=== PATIENT | female | born 1955 | race Caucasian/White ===

== ENCOUNTER 2017-05-14 11:28 | Emergency (ER) | payer MEDICARE, OTHER ==
[~2017-05-14] VITALS: Ht 162.6 cm; Wt 118.0 kg
[~2017-05-14 11:28] MED LIST: GABA300 PO; GLUCTAB OR; HYDR10TA16 PO; LISI-360 PO; MDI; METFPOW8 XX
[2017-05-14 11:31] VITALS: BP 196/88; PULSE 62; RESP 18; TEMP 98.6; O2SAT 96
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
[2017-05-14] MEDS ORDERED: SODIUM CHLORIDE 0.9% FLUSH 10 ML FLUSH IVF PRN (13:45)
[2017-05-14 13:58] LABS: AUTOMATED NEUTROPHIL # 7.7 TH/MM3 (1.8-7.7); BASOPHIL # 0.1 TH/MM3 (0-0.2); BASOPHIL % 0.6 % (0.0-2.0); EOSINOPHIL # 0.2 TH/MM3 (0-0.4); EOSINOPHIL % 1.6 % (0.0-4.0); HEMATOCRIT 39.5 % (35.0-46.0); HEMO FLAGS DIFF FINAL; LYMPH % 15.3 % (9.0-44.0); LYMPHOCYTE # 1.5 TH/MM3 (1.0-4.8); MEAN CELL VOLUME 89.9 FL (80.0-100.0); MEAN CORPUSCULAR HEMOGLOBIN 30.9 PG (27.0-34.0); MEAN CORPUSCULAR HGB CONC 34.3 % (32.0-36.0); MONO % 6.6 % (0.0-8.0); NEUT % 75.9 % (16.0-70.0); PLATELET COUNT 328 TH/MM3 (150-450); RED BLOOD COUNT 4.39 MIL/MM3 (4.00-5.30); RED CELL DISTRIBUTION WIDTH 13.7 % (11.6-17.2); WHITE BLOOD COUNT 10.1 TH/MM3 (4.0-11.0)
[2017-05-14 14:00] VITALS: BP 166/86; PULSE 61; RESP 20; O2SAT 97
[2017-05-14] MEDS ORDERED: IBUPROFEN 600 MG TAB PO ONE (14:00)
[2017-05-14] MEDS ORDERED: methylPREDNISolone SOD SUCC 125 MG/2 ML VIAL IVP ONE (14:00)
[2017-05-14 14:07] LABS: APTT (PATIENT) 27.3 SEC (24.3-30.1); PROTHROMBIN TIME - PATIENT 10.6 SEC (9.8-11.6)
[2017-05-14 14:23] LABS: ALT (GPT) 23 U/L (10-53)
[2017-05-14] MEDS ORDERED: TOPR50TA PO (14:27)
[2017-05-14] MEDS ORDERED: VENTAER INH (14:27)
[2017-05-14] MEDS ORDERED: ARIP1TAB5 PO (14:27)
[2017-05-14] MEDS ORDERED: ROSU20 PO (14:27)
[2017-05-14] MEDS ORDERED: COLA100C PO (14:27)
[2017-05-14] MEDS ORDERED: ROPI.5 PO (14:27)
[2017-05-14] MEDS ORDERED: ZOFR4TAB3 SL (14:27)
[2017-05-14] MEDS ORDERED: POTA10CA PO (14:27)
[2017-05-14] MEDS ORDERED: GABA600T PO (14:27)
[2017-05-14] MEDS ORDERED: MOBI15TA PO (14:27)
[2017-05-14] MEDS ORDERED: TRAZ50TA12 PO (14:27)
[2017-05-14] MEDS ORDERED: ASPI1TAB91 PO (14:27)
[2017-05-14] MEDS ORDERED: CYMB30CA PO (14:27)
[2017-05-14] MEDS ORDERED: FURO1TAB62 PO (14:27)
[2017-05-14] MEDS ORDERED: LISI-515 PO (14:27)
[2017-05-14] MEDS ORDERED: DEXI60CA2 PO (14:27)
[2017-05-14] MEDS ORDERED: DICL1GEL7 TOPICAL (14:27)
[2017-05-14] MEDS ORDERED: HYDR-3366 PO (14:27)
[2017-05-14] MEDS ORDERED: NITR0.4S SL (14:27)
[2017-05-14] MEDS ORDERED: SYMB160A INH (14:27)
[2017-05-14] MEDS ORDERED: BUSP10TA PO (14:27)
[2017-05-14 14:29] LABS: ALKALINE PHOSPHATASE 90 U/L (45-117); ANION GAP 9 MEQ/L (5-15); AST (GOT) 28 U/L (15-37); BICARBONATE 22.9 MEQ/L (21.0-32.0); BLOOD UREA NITROGEN 9 MG/DL (7-18); CHLORIDE 105 MEQ/L (98-107); GLOMERULAR FILTRATION RATE 115 ML/MIN (>89); MAGNESIUM 2.2 MG/DL (1.5-2.5); SODIUM (NA) 137 MEQ/L (136-145); TOTAL BILIRUBIN ADULT 0.6 MG/DL (0.2-1.0)
[2017-05-14 14:32] LABS: CREATINE KINASE 83 U/L (26-192); POTASSIUM 4.6 MEQ/L (3.5-5.1)
[2017-05-14] MEDS: RESP: ALBUTEROL 2.5 MG/IPRATROPIUM 0.5 MG NEB (SCH) INH ×2 (14:35→14:36)
--- NOTE | 2017-05-14 14:38 | RADRPT ---
EXAM DATE/TIME: 05/14/2017 14:04 [facility] COMPARISON: No previous studies available for comparison. INDICATIONS : Short of breath. MEDICAL HISTORY : None. SURGICAL HISTORY : None. ENCOUNTER: Initial ACUITY: 1 day PAIN SCORE: 8/10 LOCATION: Bilateral chest FINDINGS: A single view of the chest demonstrates the lungs to be symmetrically aerated without evidence of mas s, infiltrate or effusion. The cardiomediastinal contours are unremarkable. Osseous structures are intact. There is a calcified granuloma in the right lower lobe. There are multiple overlying electroc ardiogram leads. The patient is status post right shoulder arthroplasty. CONCLUSION: No acute disease. Sheldon Hawkins MD on May 14, 2017 at 14:36 Board Certified Radiologist. This report was verified electronically.
[2017-05-14] MEDS ORDERED: PRED20 PO (15:35)
--- NOTE | 2017-05-14 15:49 | PD ---
Data Data Last Documented VS Vital Signs Date Time Temp Pulse Resp B/P (MAP) Pulse Ox O2 Delivery O2 Flow Rate FiO2 05/14/17 14:00 61 20 166/86 (112) 97 Room Air 05/14/17 11:31 98.6 Orders Orders Electrocardiogram (05/14/17 ) Complete Blood Count With Diff (05/14/17 13:38) Comprehensive Metabolic Panel (05/14/17 13:38) B-Type Natriuretic Peptide (05/14/17 13:38) Act Partial Throm Time (Ptt) (05/14/17 13:38) Prothrombin Time / Inr (Pt) (05/14/17 13:38) Magnesium (Mg) (05/14/17 13:38) Ckmb (Isoenzyme) Profile (05/14/17 13:38) Troponin I (05/14/17 13:38) Iv Access Insert/Monitor (05/14/17 13:38) Ecg Monitoring (05/14/17 13:38) Oximetry (05/14/17 13:38) Chest, Single Ap (05/14/17 13:38) Sodium Chloride 0.9% Flush (Ns Flush) (05/14/17 13:45) Methylprednisolone So Succ Inj (Solumedr (05/14/17 14:00) Albuterol-Ipratropium Neb (Duoneb Neb) (05/14/17 14:00) Ibuprofen (Motrin) (05/14/17 14:00) Resp Mdi/Instruction (05/14/17 ) Labs Laboratory Tests Test 05/14/17 13:50 White Blood Count 10.1 TH/MM3 Red Blood Count 4.39 MIL/MM3 Hemoglobin 13.6 GM/DL Hematocrit 39.5 % Mean Corpuscular Volume 89.9 FL Mean Corpuscular Hemoglobin 30.9 PG Mean Corpuscular Hemoglobin Concent 34.3 % Red Cell Distribution Width 13.7 % Platelet Count 328 TH/MM3 Mean Platelet Volume 8.0 FL Neutrophils (%) (Auto) 75.9 % Lymphocytes (%) (Auto) 15.3 % Monocytes (%) (Auto) 6.6 % Eosinophils (%) (Auto) 1.6 % Basophils (%) (Auto) 0.6 % Neutrophils # (Auto) 7.7 TH/MM3 Lymphocytes # (Auto) 1.5 TH/MM3 Monocytes # (Auto) 0.7 TH/MM3 Eosinophils # (Auto) 0.2 TH/MM3 Basophils # (Auto) 0.1 TH/MM3 CBC Comment DIFF FINAL Differential Comment Prothrombin Time 10.6 SEC Prothromb Time International Ratio 1.0 RATIO Activated Partial Thromboplast Time 27.3 SEC Blood Urea Nitrogen 9 MG/DL Creatinine 0.54 MG/DL Random Glucose 101 MG/DL Total Protein 7.7 GM/DL Albumin 3.7 GM/DL Calcium Level 9.3 MG/DL Magnesium Level 2.2 MG/DL Alkaline Phosphatase 90 U/L Aspartate Amino Transf (AST/SGOT) 28 U/L Alanine Aminotransferase (ALT/SGPT) 23 U/L Total Bilirubin 0.6 MG/DL Sodium Level 137 MEQ/L Potassium Level 4.6 MEQ/L Chloride Level 105 MEQ/L Carbon Dioxide Level 22.9 MEQ/L Anion Gap 9 MEQ/L Estimat Glomerular Filtration Rate 115 ML/MIN Total Creatine Kinase 83 U/L Troponin I LESS THAN 0.02 NG/ML B-Type Natriuretic Peptide 115 PG/ML MDM Supervised Visit with MARITA: Yes Narrative Course The history, exam, and medical decision-making in the associated midlevel provider note were completed with my assistance. I reviewed and agree with the findings presented. I attest that I had a [id number] encounter with the patient on the same day, and personally performed and documented my assessment and findings in the medical record. *My assessment and Findings: This is a 62-year-old female who has a history of COPD who presents to the emergency department with shortness of breath and chest discomfort that's been present for several days, constant, associated with some cough with yellow sputum production. Patient has been out of power says she has not accessed her nebulizer machine order CPAP. She says that earlier this calendar year she was seen in [place] and had a full cardiac workup including a stress test which was reassuring. Today her EKG is nonischemic. Troponin is normal. She is quite hypertensive but that improved here in the emergency department. She was given bronchodilator treatments and steroids and her symptoms improved significantly. We had a conversation regarding admission versus outpatient management. Her chest pain has been constant for more than 8 hours and she's had risk stratification earlier this year so I think one troponin is adequate to reasonably skewed acute coronary syndrome. She was given a spacer for her MDI which should hold her over until her power comes back on and her nebulizers work again. She'll also be discharged on prednisone. I suspect her symptoms are more related to her COPD. Patient will be discharged home but she was asked to return to the emergency department if she had all feels worse. Diagnosis Primary Impression: COPD exacerbation Referrals: Primary Care Physician Patient Instructions: General Instructions, COPD (Chronic Obstructive Pulmonary Disease) (ED), Nutrition Guidelines for People with COPD (ED) Additional Instruction: Rest, hydrate. Continue using your inhaler with the spacer as needed. Take prednisone as prescribed. Take metformin as previously prescribed while taking prednisone. Follow up with your PCP or the [facility]. Return to the ED for worsening symptoms or any urgent or emergent medical condition. Scripts Prednisone (Prednisone) 20 Mg Tab 40 MG PO DAILY, #10 TAB 0 Refills Take 40 mg (2 tablets) daily for 5 days Prov: Nicole Hearn MD 05/14/17 Disposition: 01 DISCHARGE HOME Condition: Stable Nicole Hearn MD May 14, 2017 15:49
--- NOTE | 2017-05-15 21:56 | EKG ---
Date Performed: 05/14/2017 Time Performed: 11:57:06 PTAGE: 62 years EKG: SINUS BRADYCARDIA MINIMAL ST DEPRESSION BORDERLINE ECG PREVIOUS TRACING : 11/12/1993 20.19 Compared to prior tracing no significant change DOCTOR: Carey Joy Interpretating Date/Time 05/15/2017 21:55:34
== END 2017-05-14 16:09 | disposition home or self-care (01) ==
LOC: NEPC 11:28
DX: J44.1 Chronic obstructive pulmonary disease with (acute) exacerbation (principal); I10 Essential (primary) hypertension; E11.9 Type 2 diabetes mellitus without complications; I50.9 Heart failure, unspecified; E78.00 Pure hypercholesterolemia, unspecified; G47.33 Obstructive sleep apnea (adult) (pediatric)
CPT/HCPCS: 71010; 80053; 82550; 83735; 83880; 84484; 85025; 85610; 85730; 93005; 94640; 94664; 96374; 99285; J2930

== ENCOUNTER 2017-08-04 14:05 | Emergency (ER) | payer MEDICARE, OTHER ==
[~2017-08-04] VITALS: Ht 162.6 cm; Wt 109.0 kg
[~2017-08-04 14:05] MED LIST changes: +ABIL10TA8 PO; +ASPI81TA16 PO; +BUSP10TA PO; +COLA100C5 PO; +CYMB30CA PO; +DEXI60CA3 PO; +DICL1GEL7 TOPICAL; +FURO1TAB62 PO; -GABA300 PO; +GABA600T PO; -GLUCTAB OR; +HYDR-3366 PO; -HYDR10TA16 PO; -LISI-360 PO; +LISI-515 PO; -MDI; -METFPOW8 XX; +MOBI15TA PO; +NITR0.4S SL; +POTA10CA PO; +PRED20 PO; +ROPI.5 PO; +ROSU20 PO; +SYMB160A INH; +TOPR50TA PO; +TRAZ50TA12 PO; +VENTAER INH; +ZOFR4TAB3 SL
[2017-08-04 14:07] VITALS: BP 155/76; PULSE 75; RESP 22; TEMP 98; O2SAT 98
[2017-08-04] MEDS ORDERED: METOCLOPRAMIDE HCL 10 MG TAB PO ONE (16:15)
--- NOTE | 2017-08-04 16:52 | RADRPT ---
EXAM DATE/TIME: 08/04/2017 16:25 [facility] COMPARISON: CHEST SINGLE AP, May 14, 2017, 14:04. INDICATIONS : Right rib pain from fall. MEDICAL HISTORY : None. SURGICAL HISTORY : None. ENCOUNTER: Initial ACUITY: 1 day PAIN SCORE: 5/10 LOCATION: Right ribs FINDINGS: Multiple views of the right ribs were performed. There is no evidence of displaced fracture. No leelee tructive lesions or areas of periosteal thickening are seen. Expiratory view of the chest is negativ e for pneumothorax. The mediastinal structures are midline. There is a small stable granuloma in the right lung base. There is a right shoulder arthroplasty in place. CONCLUSION: 1. No displaced rib fractures or pneumothorax. Jorge Finley MD on August 04, 2017 at 16:47 Board Certified Radiologist. This report was verified electronically.
--- NOTE | 2017-08-04 16:52 | RADRPT ---
EXAM DATE/TIME: 08/04/2017 16:32 [facility] COMPARISON: No previous studies available for comparison. INDICATIONS : Foot pain, from fall. MEDICAL HISTORY : None. SURGICAL HISTORY : None. ENCOUNTER: Initial ACUITY: 1 day PAIN SCORE: 0/10 LOCATION: Right foot FINDINGS: Bones are osteopenic. I don't see an acute fracture of the right foot. There is mild soft tissue swel ling dorsally of the forefoot. Incidentally seen type I accessory navicular. Patient is status post screw and plate fixation of distal tibia and fibula fractures that appear heal ed. CONCLUSION: No fracture or subluxation of the right foot. Caesar Pearson MD on August 04, 2017 at 16:48 Board Certified Radiologist. This report was verified electronically.
--- NOTE | 2017-08-04 16:55 | RADRPT ---
EXAM DATE/TIME: 08/04/2017 16:28 [facility] COMPARISON: No previous studies available for comparison. INDICATIONS : Fall, shoulder pain. lateral portion of shoulder. MEDICAL HISTORY : None. SURGICAL HISTORY : None. ENCOUNTER: Initial ACUITY: 1 day PAIN SCORE: 0/10 LOCATION: Left shoulder FINDINGS: There is a minimally displaced fracture of the greater tuberosity. Remaining osseous structures are i ntact. Glenohumeral joint are maintained. The acromioclavicular joint is intact. Visualized soft tiss ues are unremarkable. CONCLUSION: 1. Minimally displaced greater tuberosity fracture, as above. Jorge Finley MD on August 04, 2017 at 16:50 Board Certified Radiologist. This report was verified electronically.
--- NOTE | 2017-08-04 17:09 | PD ---
HPI Chief Complaint: Fall Time Seen by Provider: 15:15 Travel History International Travel<30 days: No Contact w/Intl Traveler<30days: No Traveled to known affect area: No History of Present Illness HPI To 62-year-old woman who presents to the emergency department complaining of pain from a fall. She states she fell off 3 stairs to her mobile home 2 nights ago. She has pain in her left shoulder right ribs and right foot. She states she thought she just bruised it and so she gave it a couple days but was still having significant pain today and so came to the emergency department. She endorses a history of COPD diabetes fibromyalgia hypertension hyperlipidemia and MARILYNN. History Past Medical History Narrative Medical COPD Diabetes Fibromyalgia Hypertension Hyperlipidemia MARILYNN Menopausal: Yes Social History Alcohol Use: No Tobacco Use: No Allergies-Medications (Allergen,Severity, Reaction): Coded Allergies: ampicillin (Unverified Allergy, Severe, Hives, 08/04/17) ondansetron (Verified Allergy, Intermediate, 08/04/17) pregabalin (Unverified Adverse Reaction, Severe, Confusion, 08/04/17) Reported Meds & Prescriptions Reported Meds & Active Scripts Active Prednisone 20 Mg Tab 40 Mg PO DAILY Take 40 mg (2 tablets) daily for 5 days Reported Trazodone (Trazodone HCl) 50 Mg Tab 50 Mg PO HS Crestor (Rosuvastatin Calcium) 20 Mg Tab 20 Mg PO DAILY Requip (Ropinirole HCl) 0.5 Mg Tab 0.5 Mg PO HS Potassium Chloride ER (Potassium Chloride) 10 Meq Cap 10 Meq PO DAILY Zofran Odt (Ondansetron Odt) 4 Mg Tab 4 Mg SL Q8HR PRN Nitrostat SL (Nitroglycerin) 0.4 Mg Subl 0.4 Mg SL DIRECTED PRN 1 tablet under the tongue as needed for chest pain. Repeat every 5 minutes for a total of 3 DOSES or call 911 if NO relief. Toprol XL (Metoprolol Succinate) 50 Mg Tab 50 Mg PO DAILY Mobic (Meloxicam) 15 Mg Tab 15 Mg PO DAILY Lisinopril 20 Mg Tab 20 Mg PO DAILY [place] (Hydrocodone-Acetaminophen) 10-325 Mg Tab 1 Tab PO Q4-6H PRN Gabapentin 600 Mg Tab 600 Mg PO TID Lasix (Furosemide) 20 Mg Tab 20 Mg PO DAILY Cymbalta DR (Duloxetine HCl) 30 Mg Capdr 30 Mg PO BID Colace (Docusate Sodium) 100 Mg Capsule 100 Mg PO BID PRN Diclofenac Topical 1% Gel 1 Applic TOPICAL TID Dexilant (Dexlansoprazole) 60 Mg bp 60 Mg PO DAILY Buspirone (Buspirone HCl) 10 Mg Tab 10 Mg PO TID Symbicort Inh (Budesonide/Formoterol Fumarate) 160-4.5 Mcg/Act Aero 2 Puff INH Q12HR Aspirin Adult Low Strength (Aspirin) 81 Mg Tabdr 81 Mg PO DAILY Abilify (Aripiprazole) 10 Mg Tab 10 Mg PO DAILY Ventolin Hfa 18 GM Inh (Albuterol Sulfate) 90 Mcg/Act Aer 2 Puff INH Q6H PRN Review of Systems Except as stated in HPI: all other systems reviewed are Neg Physical Exam Narrative GENERAL: 62 year-old woman, no acute distress. Morbidly obese. SKIN: Focused skin assessment warm/dry. HEAD: Atraumatic. Normocephalic. EYES: Pupils equal and round. No scleral icterus. No injection or drainage. ENT: No nasal bleeding or discharge. Mucous membranes pink and moist. NECK: Trachea midline. No JVD. CARDIOVASCULAR: Regular rate and rhythm. No murmur appreciated. RESPIRATORY: No accessory muscle use. Clear to auscultation. Breath sounds equal bilaterally. GASTROINTESTINAL: Abdomen soft, non-tender, nondistended. Hepatic and splenic margins not palpable. MUSCULOSKELETAL: No obvious deformities. Pain and tenderness in the anterior left shoulder. She is range of motion but has pain with palpation anterior joint line. Distally she is neurovascularly intact. Unremarkable. Back is unremarkable. She is some pain across her right sided rib cage I don't see any bruising or ecchymosis. Examination of the right lower extremity reveals bruising and the great toe. Some around the MTP and distal metatarsal. NEUROLOGICAL: Awake and alert. No obvious cranial nerve deficits. Motor grossly within normal limits. Normal speech. PSYCHIATRIC: Appropriate mood and affect; insight and judgment normal. Data Data Last Documented VS Vital Signs Date Time Temp Pulse Resp B/P (MAP) Pulse Ox O2 Delivery O2 Flow Rate FiO2 08/04/17 14:07 98.0 75 22 155/76 (102) 98 Orders Orders Shoulder, Complete (>2vws) (08/04/17 ) Ribs, Uni (W/Exp Cxr-Min 3vw) (08/04/17 ) Foot, Complete (Nox3atr) (08/04/17 ) Metoclopramide (Reglan) (08/04/17 16:15) MDM Medical Decision Making Medical Screen Exam Complete: Yes Emergency Medical Condition: Yes Interpretation(s) Right foot x-ray: Negative. Right sided rib series: Negative. Shoulder x-ray: Minimally displaced fracture of the greater tuberosity. Differential Diagnosis Head injury, shoulder injury, rotator cuff injury, foot fracture, phalanx fracture of the toe, rib fractures, contusion, pneumothorax, other Narrative Course Medical decision-making new para 8-year-old woman with a fall. She is a small minimally displaced fracture of the right shoulder, anterior greater tuberosity humerus. Is otherwise well. Recommend sling and outpatient follow-up with orthopedics. Diagnosis Primary Impression: Shoulder fracture, left Referrals: Devang Johnson MD 3 days Patient Instructions: General Instructions Additional Instructions: Follow-up with orthopedic doctor in the next one to 2 weeks. Return to the emergency department for any new or worsening symptoms. Use sling at all times except when showering until cleared by orthopedics. Med/Other Pt SpecificInfo: Prescription(s) given Disposition: 01 DISCHARGE HOME Condition: Stable Dick Belcher MD Aug 04, 2017 17:09
== END 2017-08-04 18:04 | disposition home or self-care (01) ==
LOC: NEPE 14:05
DX: S42.252A Displaced fracture of greater tuberosity of left humerus, initial encounter for closed fracture (principal); J44.9 Chronic obstructive pulmonary disease, unspecified; E11.9 Type 2 diabetes mellitus without complications; M79.7 Fibromyalgia; I10 Essential (primary) hypertension; E78.5 Hyperlipidemia, unspecified; G47.33 Obstructive sleep apnea (adult) (pediatric); W10.9XXA Fall (on) (from) unspecified stairs and steps, initial encounter; Y92.029 Unspecified place in mobile home as the place of occurrence of the external cause
CPT/HCPCS: 71101; 73030; 73630; 99284

== ENCOUNTER 2018-03-08 06:41 | Observation (INO) ==
--- NOTE | 2018-03-08 07:47 | XR ---
EXAM DATE: 03/08/2018 7:32 AM EDT AGE/SEX: 63 years / Female INDICATIONS: Chest pain. CLINICAL DATA: This is the patient's initial encounter. Patient reports that signs and symptoms have been present for 1 day and indicates a pain score of 10/10. MEDICAL/SURGICAL HISTORY: Chronic obstructive pulmonary disease. Congestive heart failure. Hy pertension. Diabetes. Asthma. . ORIF right shoulder. COMPARISON: No prior exams available for comparison. FINDINGS: A single AP view of the chest demonstrates the lungs to be symmetrically aerated without evidence of mass, infiltrate or effusion. Mild cardiomegaly. Calcified granuloma right lower lobe. The cardiomedi astinal contours are unremarkable. Osseous structures are intact. Right proximal humeral/shoulder p rosthesis. CONCLUSION: No acute cardiopulmonary disease. Mild cardiomegaly. Electronically signed by: Alphonse Hill MD 03/08/2018 7:46 AM EDT
--- NOTE | 2018-03-08 07:54 | ED ---
HPI General Stated Complaint: Chest Pain/Evac Time Seen by Provider: 03/08/18 07:09 Source: patient Mode of arrival: EMS Limitations: no limitations History of Present Illness HPI narrative: 63-year-old female complains of chest pain. Patient states the chest pain started about 4 hours prior to arrival. Patient states the pain aching pain and sharp pain side on the left with radiation to left shoulder and left arm. Patient has history angina in the past. Patient took on nitroglycerin sublingually and EMS was called. Patient was given nitroglycerin spray by EMS. Patient was given Zofran by EMS for nausea also. Patient states that the pain seems aching pain and sharp pain also localized left upper abdomen. Patient has history of CHF. Patient has history hypertension, hyperlipidemia, diabetes. Patient is a non-smoker. MD complaint: chest pain Complete Quality Measures for STEMI Alert Patients STEMI Alert: No Onset (ago): hour(s) Duration: constant Onset: during rest Pain location: left chest Severity: moderate Severity scale (1-10): 7 Quality: aching and sharp Pain radiation: LUE Relieving factors: nothing and remaining still Exacerbating factors: nothing Associated symptoms: nausea Treatments prior to arrival chest pain: nitroglycerin Related Data Home Medications Medication Instructions Recorded Confirmed albuterol sulfate [ProAir HFA] 2 puff INHALATION Q6H PRN 03/08/18 03/08/18 aripiprazole 10 mg PO DAILY 03/08/18 03/08/18 aspirin [Aspir-81] 81 mg PO DAILY 03/08/18 03/08/18 budesonide-formoterol [Symbicort] 2 puff INHALATION BID 03/08/18 03/08/18 buspirone 10 mg PO TID 03/08/18 03/08/18 dexlansoprazole [Dexilant] 60 mg PO DAILY 03/08/18 03/08/18 duloxetine [Cymbalta] 30 mg PO BID 03/08/18 03/08/18 furosemide [Lasix] 20 mg PO DAILY 03/08/18 03/08/18 gabapentin 300 mg PO TID 03/08/18 03/08/18 guaifenesin 600 mg PO Q12H 03/08/18 03/08/18 meloxicam 7.5 mg PO DAILY 03/08/18 03/08/18 metoprolol succinate [Toprol XL] 25 mg PO DAILY 03/08/18 03/08/18 nitroglycerin 0.4 mg SUBLINGUAL Q5-15M PRN 03/08/18 03/08/18 ondansetron [Zofran ODT] 4 mg PO TID PRN 03/08/18 03/08/18 potassium chloride 10 meq PO DAILY 03/08/18 03/08/18 rosuvastatin [Crestor] 20 mg PO DAILY 03/08/18 03/08/18 trazodone 50 mg PO HS 03/08/18 03/08/18 Allergies Allergy/AdvReac Type Severity Reaction Status Date / Time ampicillin Allergy Severe Hives Verified 03/08/18 06:53 promethazine [From Phenergan] Allergy Itching Verified 03/08/18 06:53 pregabalin AdvReac Severe Confusion Verified 03/08/18 06:53 doxycycline AdvReac Nausea Verified 03/08/18 06:53 Review of Systems Except as stated in HPI: all other systems reviewed are negative PMFSH Medical History Medical History CHF (congestive heart failure) (Acute) COPD (chronic obstructive pulmonary disease) (Acute) Diabetes (Acute) High cholesterol (Acute) Hypertension (Acute) Neuropathy (Acute) Sleep apnea (Acute) Sleep apnea treated with nocturnal BiPAP (Acute) Sleep apnea with use of continuous positive airway pressure (CPAP) (Acute) Surgical History Surgical History History of appendectomy (Acute) History of arthroplasty of right ankle (Acute) History of cholecystectomy (Acute) History of total left knee replacement (Acute) History of total replacement of right shoulder joint (Acute) History of tubal ligation (Acute) Social History Social History Substance History: No History of Abuse Second Hand Smoke Exposure: No Smoking Status: Never smoker How Often Do You Have a Drink Containing Alcohol: Never Recent Travel in [facility] within the Last 8 Weeks: No Recent Out of Country Travel within the Last 8 Weeks: No Exam Narrative Exam Narrative: GENERAL: Well-nourished, well-developed patient. SKIN: Focused skin assessment warm/dry. HEAD: Normocephalic. EYES: No scleral icterus. No injection or drainage. NECK: Supple, trachea midline. No JVD or lymphadenopathy. CARDIOVASCULAR: Regular rate and rhythm without murmurs, gallops, or rubs. RESPIRATORY: Breath sounds equal bilaterally. No accessory muscle use. GASTROINTESTINAL: Abdomen soft, non-tender, nondistended. MUSCULOSKELETAL: No cyanosis, or edema. BACK: Nontender without obvious deformity. No CVA tenderness. Neurologic exam normal. Course Initial Documented Vital Signs Temperature 98 F 03/08/18 06:54 Pulse Rate 75 03/08/18 06:54 Respiratory Rate 16 03/08/18 06:54 Blood Pressure 133/66 03/08/18 06:54 Pulse Oximetry 96 03/08/18 06:54 Last Documented Vital Signs Temperature 97.9 F 03/09/18 08:00 Pulse Rate 62 03/09/18 13:39 Respiratory Rate 14 03/09/18 13:39 Blood Pressure 139/74 03/09/18 08:00 Pulse Oximetry 94 L 03/09/18 08:00 Medical Decision Making MDM Narrative Medical decision making narrative: 63-year-old female with chest pain. EKG shows sinus rhythm nonspecific ST-T wave change. Cardiac enzymes are normal. Patient will be admitted to the chest pain center. Differential Diagnosis Differential Diagnosis: Differential diagnosis including musculoskeletal, angina , [place], PE, pneumothorax, gastritis, PUD, pancreatitis, colitis, UTI, pyelonephritis. Lab Data Result diagrams: 03/08/18 07:15 03/08/18 07:15 Lab Results 03/08/18 03/08/18 03/08/18 Range/Units 07:15 07:15 07:15 WBC 9.1 (4.0-11.0) th/mm3 RBC 4.24 (4.00-5.30) mil/mm3 Hgb 12.8 (11.6-15.3) gm/dL Hct 38.2 (35.0-46.0) % MCV 89.9 (80.0-100.0) fL MCH 30.2 (27.0-34.0) pg MCHC 33.6 (32.0-36.0) % RDW 13.6 (11.6-17.2) % Plt Count 321 (150-450) th/mm3 MPV 8.5 (7.0-11.0) fL Neut % (Auto) 59.9 (16.0-70.0) % Lymph % (Auto) 26.1 (9.0-44.0) % [place] % (Auto) 9.6 H (0.0-8.0) % Eos % (Auto) 4.0 (0.0-4.0) % Baso % (Auto) 0.4 (0.0-2.0) % Neut # (Auto) 5.4 (1.8-7.7) th/mm3 Lymph # (Auto) 2.4 (1.0-4.8) th/mm3 [place] # (Auto) 0.9 (0.0-0.9) th/mm3 Eos # (Auto) 0.4 (0.0-0.4) th/mm3 Baso # (Auto) 0.0 (0.0-0.2) th/mm3 WBC Differential . Differential Comment Auto diff final PT 9.9 (9.8-11.6) sec INR 1.0 Ratio APTT 24.5 (24.3-30.1) sec Sodium (136-145) meq/L Potassium (3.5-5.1) meq/L Chloride (98-107) meq/L Carbon Dioxide (21.0-32.0) meq/L Anion Gap (5-15) meq/L BUN (7-18) mg/dL Creatinine (0.50-1.00) mg/dL Estimated GFR (>89) mL/min POC Glucose (68-110) mg/dl Random Glucose (74-106) mg/dL Calcium (8.5-10.1) mg/dL Magnesium (1.5-2.5) mg/dL Total Bilirubin (0.2-1.0) mg/dL AST (15-37) U/L ALT (10-53) U/L Alkaline Phosphatase (45-117) U/L Total Creatine Kinase (26-192) U/L Troponin I (0.02-0.05) ng/mL B-Natriuretic Peptide 10 (0-100) pg/mL Total Protein (6.4-8.2) g/dL Albumin (3.4-5.0) g/dL Lipase (73-393) U/L 03/08/18 03/08/18 03/08/18 Range/Units 07:15 10:30 12:52 WBC (4.0-11.0) th/mm3 RBC (4.00-5.30) mil/mm3 Hgb (11.6-15.3) gm/dL Hct (35.0-46.0) % MCV (80.0-100.0) fL MCH (27.0-34.0) pg MCHC (32.0-36.0) % RDW (11.6-17.2) % Plt Count (150-450) th/mm3 MPV (7.0-11.0) fL Neut % (Auto) (16.0-70.0) % Lymph % (Auto) (9.0-44.0) % [place] % (Auto) (0.0-8.0) % Eos % (Auto) (0.0-4.0) % Baso % (Auto) (0.0-2.0) % Neut # (Auto) (1.8-7.7) th/mm3 Lymph # (Auto) (1.0-4.8) th/mm3 [place] # (Auto) (0.0-0.9) th/mm3 Eos # (Auto) (0.0-0.4) th/mm3 Baso # (Auto) (0.0-0.2) th/mm3 WBC Differential Differential Comment PT (9.8-11.6) sec INR Ratio APTT (24.3-30.1) sec Sodium 143 (136-145) meq/L Potassium 3.8 (3.5-5.1) meq/L Chloride 106 (98-107) meq/L Carbon Dioxide 25.6 (21.0-32.0) meq/L Anion Gap 11 (5-15) meq/L BUN 24 H (7-18) mg/dL Creatinine 0.68 (0.50-1.00) mg/dL Estimated GFR 88 L (>89) mL/min POC Glucose 95 (68-110) mg/dl Random Glucose 117 H (74-106) mg/dL Calcium 9.0 (8.5-10.1) mg/dL Magnesium 2.2 (1.5-2.5) mg/dL Total Bilirubin 0.3 (0.2-1.0) mg/dL AST 14 L (15-37) U/L ALT 26 (10-53) U/L Alkaline Phosphatase 85 (45-117) U/L Total Creatine Kinase 67 68 (26-192) U/L Troponin I Less than 0.02 L Less than 0.02 L (0.02-0.05) ng/mL B-Natriuretic Peptide (0-100) pg/mL Total Protein 7.1 (6.4-8.2) g/dL Albumin 3.4 (3.4-5.0) g/dL Lipase 138 (73-393) U/L 03/08/18 03/08/18 03/09/18 Range/Units 14:00 22:04 15:40 WBC (4.0-11.0) th/mm3 RBC (4.00-5.30) mil/mm3 Hgb (11.6-15.3) gm/dL Hct (35.0-46.0) % MCV (80.0-100.0) fL MCH (27.0-34.0) pg MCHC (32.0-36.0) % RDW (11.6-17.2) % Plt Count (150-450) th/mm3 MPV (7.0-11.0) fL Neut % (Auto) (16.0-70.0) % Lymph % (Auto) (9.0-44.0) % [place] % (Auto) (0.0-8.0) % Eos % (Auto) (0.0-4.0) % Baso % (Auto) (0.0-2.0) % Neut # (Auto) (1.8-7.7) th/mm3 Lymph # (Auto) (1.0-4.8) th/mm3 [place] # (Auto) (0.0-0.9) th/mm3 Eos # (Auto) (0.0-0.4) th/mm3 Baso # (Auto) (0.0-0.2) th/mm3 WBC Differential Differential Comment PT (9.8-11.6) sec INR Ratio APTT (24.3-30.1) sec Sodium (136-145) meq/L Potassium (3.5-5.1) meq/L Chloride (98-107) meq/L Carbon Dioxide (21.0-32.0) meq/L Anion Gap (5-15) meq/L BUN (7-18) mg/dL Creatinine (0.50-1.00) mg/dL Estimated GFR (>89) mL/min POC Glucose 96 83 (68-110) mg/dl Random Glucose (74-106) mg/dL Calcium (8.5-10.1) mg/dL Magnesium (1.5-2.5) mg/dL Total Bilirubin (0.2-1.0) mg/dL AST (15-37) U/L ALT (10-53) U/L Alkaline Phosphatase (45-117) U/L Total Creatine Kinase 62 (26-192) U/L Troponin I Less than 0.02 L (0.02-0.05) ng/mL B-Natriuretic Peptide (0-100) pg/mL Total Protein (6.4-8.2) g/dL Albumin (3.4-5.0) g/dL Lipase (73-393) U/L Imaging Data Radiologist's impression: ITS Impressions Chest X-Ray 03/08/18 07:19 CONCLUSION: No acute cardiopulmonary disease. Mild cardiomegaly. Myocardial Perfusion Scan Nuc Med 03/09/18 07:30 CONCLUSION: 1. No reversible perfusion defects to suggest ischemia. 2. Ejection fraction 53%. Discharge Plan Discharge Disposition Patient Disposition: 01 Discharge Home Discharge Condition Condition: Stable Discharge Order Discharge Orders: Discharge Order (Routine); Ordered 03/09/18 Ordered By: Stanley Aldana Discharge Details Anticipated Discharge Date: 03/09/18 Discharge Problem: Chest pain Physicians Team ED Provider: Oscar Wade Primary Care Provider: UNKNOWN, Attending Provider: Jairo Lau Status ED Status: Left Department Discharge Information Discharge Date/Time: 03/09/18 17:02
[2018-03-08 08:31] LABS: Baso % (Auto) 0.4 % (0.0-2.0); Eos # (Auto) 0.4 th/mm3 (0.0-0.4); Hematocrit 38.2 % (35.0-46.0); Hemoglobin 12.8 gm/dL (11.6-15.3); Lymph # (Auto) 2.4 th/mm3 (1.0-4.8); Lymph % (Auto) 26.1 % (9.0-44.0); Mean Corpuscular HGB Conc 33.6 % (32.0-36.0); Mean Corpuscular Hemoglobin 30.2 pg (27.0-34.0); Mean Corpuscular Volume 89.9 fL (80.0-100.0); Mean Platelet Volume 8.5 fL (7.0-11.0); Mono # (Auto) 0.9 th/mm3 (0.0-0.9); Mono % (Auto) 9.6 % (0.0-8.0); Neut # (Auto) 5.4 th/mm3 (1.8-7.7); Neut % (Auto) 59.9 % (16.0-70.0); Platelet Count 321 th/mm3 (150-450); Red Blood Count 4.24 mil/mm3 (4.00-5.30); Red Cell Distribution Width 13.6 % (11.6-17.2); White Blood Count 9.1 th/mm3 (4.0-11.0)
[2018-03-08 08:38] LABS: Activated Partial Thrombo Time 24.5 sec (24.3-30.1); Prothrombin Time 9.9 sec (9.8-11.6)
[2018-03-08 08:54] LABS: Albumin 3.4 g/dL (3.4-5.0); Anion Gap 11 meq/L (5-15); Aspartate Aminotransferase 14 U/L (15-37); Blood Urea Nitrogen 24 mg/dL (7-18); Carbon Dioxide 25.6 meq/L (21.0-32.0); Chloride 106 meq/L (98-107); Glomerular Filtration Rate 88 mL/min (>89); Glucose,Random 117 mg/dL (74-106); Lipase 138 U/L (73-393); Magnesium 2.2 mg/dL (1.5-2.5); Potassium 3.8 meq/L (3.5-5.1); Sodium 143 meq/L (136-145)
[2018-03-08 08:55] LABS: Alanine Aminotransferase 26 U/L (10-53)
[2018-03-08 08:59] LABS: Alkaline Phosphatase 85 U/L (45-117); Total Protein 7.1 g/dL (6.4-8.2)
[2018-03-08 09:03] LABS: Creatine Kinase 67 U/L (26-192)
[2018-03-08] MEDS ORDERED: Acetaminophen 500 MG Tablet PO PRN (11:07)
--- NOTE | 2018-03-08 11:34 | P.HPCA ---
History of Present Illness Primary Care Physician: UNKNOWN Chief Complaint: Chest pain History of Present Illness: This is a 63-year-old female with history of hypertension, hyperlipidemia, COPD , depression, sleep apnea, obesity, diabetes which she states is diet controlled , past history of tobacco abuse that presents to ED via EMS with complaint of chest discomfort. Patient states that yesterday while walking at [facility] she felt very weak. She checked her blood sugar was 63. She is a subsequently ate a candy bar and drank a Coca-Cola and then had a hamburger and chicken nuggets. She went home checked her blood sugar and it was 110 and still felt a little weak. She essentially then just rested at home the rest of the day. About the same time she also developed a left-sided burning discomfort in her chest that is still there at this time. The discomfort is been there greater than 18 hours. She has had intermittent shortness of breath, nausea, and diaphoresis with this but primarily it was when it first occurred. States that the discomfort was a 10 out of 10 this morning when she decided to call for EVAC. She was given sublingual spray of nitroglycerin with EMS and brought the discomfort from a 10 to an 8 out of 10 within about 30 minutes. Currently the discomfort is still present but as a 6 out of 10. Seem to hurt more when she has certain movements. Cannot recall having a discomfort like this in the past. Denies history of coronary disease but states she cannot recall having a cardiac catheterization but believes she had a stress test about 10 years ago that was okay. Denies recent travel. Denies recent illness. Patient quit smoking 33 years ago but prior to that she smoked 2 pack of cigarettes daily for 15 years. Denies alcohol or illicit drugs. She lives with her son and grandson states she is about to move back to [place]. States that her father suddenly at age 72 of a myocardial infarction. Patient has had appendectomy, right ankle surgery, cholecystectomy, total left knee, right shoulder, and tubal ligation. - Diagnosis (1) Chest pain (2) Hypertension (3) Hyperlipidemia (4) Diabetes (5) Depression (6) Obesity (7) Sleep apnea (8) COPD (chronic obstructive pulmonary disease) Inpatient Certification: I certify that the inpatient services were ordered in accordance with Medicare regulations governing the order. This includes certification that hospital inpatient services are reasonable and necessary and in the case of services not specified as inpatient-only under 42 CFR 419.22(n), that they are appropriately provided as inpatient services in accordance to with the 2-midnight benchmark under 43 CFR 412.3(e) Review of Systems General: Patient denies fevers, chills, and recent travel. HEENT: Patient denies headache, sore throat, difficulty swallowing. Cardiovascular: Has the chest discomfort as mentioned above. Denies sensation of heart beating rapidly or irregularly. No syncope. She was diaphoretic. Respiratory: She was short of breath but primarily when symptoms first began yesterday. Denies shortness of breath or inspirational chest discomfort. Denies coughing wheezing or hemoptysis. GI: She was nauseous but primarily when symptoms first began yesterday afternoon. Patient denies vomiting, diarrhea, abdominal pain, bloody stools. Musculoskeletal: Chronic right knee pain. States she is due to have a total knee replacement. Patient denies joint edema. Denies calf pain or edema. Neurovascular: Patient denies numbness, tingling, weakness in extremities. Denies headache. Endocrine: Denies polyuria and polydipsia. Hematologic: Denies easy bruising. Skin: Denies rash or itching. PMFSH - History History Provided By: Patient, Berry Planter / EMT - Medical History Medical History: Medical History (Last Reviewed 03/08/18 @ 07:52 by Oscar Wade MD) CHF (congestive heart failure) COPD (chronic obstructive pulmonary disease) Diabetes High cholesterol Hypertension Neuropathy Sleep apnea Sleep apnea treated with nocturnal BiPAP Sleep apnea with use of continuous positive airway pressure (CPAP) - Surgical History Surgical History: Surgical History (Last Reviewed 03/08/18 @ 07:52 by Oscar Wade MD) History of appendectomy History of arthroplasty of right ankle History of cholecystectomy History of total left knee replacement History of total replacement of right shoulder joint History of tubal ligation - Travel History Recent Travel in the [place] Within the Last 8 Weeks: No Recent Travel Out of the Country Within the Last 8 Weeks: No Medications and Allergies Active Medications: Active Medications Acetaminophen (Tylenol) 500 mg PO Q6H PRN PRN Reason: pain scale 1-5 Hydrocodone Bitart/Acetaminophen ([place] 7.5/325) 1 tab PO Q6H PRN PRN Reason: pain scale 6-10 Albuterol (Duoneb Neb (Prn)) 1 ampul NEB Q4HR NEB PRN PRN Reason: SHORTNESS OF BREATH/WHEEZING Aripiprazole (Abilify) 10 mg PO DAILY LEONIE Buspirone HCl (Buspar) 10 mg PO TID LEONIE Clonidine HCl (Catapres) 0.1 mg PO Q6H PRN PRN Reason: SBP >165 OR DBP > 110 Duloxetine HCl (Cymbalta) 30 mg PO BID LEONIE Furosemide (Lasix) 20 mg PO DAILY LEONIE Gabapentin (Neurontin) 300 mg PO TID LEONIE Insulin Human Regular (Novolin R Supplemental Scale) 0 units SQ ACHS LEONIE; Protocol Ketorolac Tromethamine (Toradol Inj) 30 mg IV.PUSH ONCE ONE Stop: 03/08/18 11:09 Metoprolol Succinate (Toprol Xl) 25 mg PO DAILY LEONIE Non-Formulary Medication (Rosuvastatin) 20 mg PO DAILY LEONIE Pantoprazole Sodium (Protonix) 40 mg PO DAILY LEONIE Potassium Chloride (Kcl) 10 meq PO DAILY LEONIE Sodium Chloride (Ns Flush) 2 ml IV.FLUSH UNSCH PRN PRN Reason: FLUSH AFTER USING IV ACCESS Last Admin: 03/08/18 07:42 Dose: 2 ml Sodium Chloride (Ns Flush) 2 ml IV.FLUSH BID [facility] Sodium Chloride (Ns Flush) 2 ml IV.FLUSH PRN PRN PRN Reason: FLUSH AFTER USING IV ACCESS Trazodone HCl (Desyrel) 50 mg PO [facility] Allergies Allergy/AdvReac Type Severity Reaction Status Date / Time ampicillin Allergy Severe Hives Verified 03/08/18 06:53 promethazine [From Phenergan] Allergy Itching Verified 03/08/18 06:53 pregabalin AdvReac Severe Confusion Verified 03/08/18 06:53 doxycycline AdvReac Nausea Verified 03/08/18 06:53 Home Medications Medication Instructions Recorded Confirmed Type albuterol sulfate [ProAir HFA] 2 puff INHALATION Q6H PRN 03/08/18 03/08/18 History aripiprazole 10 mg PO DAILY 03/08/18 03/08/18 History aspirin [Aspir-81] 81 mg PO DAILY 03/08/18 03/08/18 History budesonide-formoterol [Symbicort] 2 puff INHALATION BID 03/08/18 03/08/18 History buspirone 10 mg PO TID 03/08/18 03/08/18 History dexlansoprazole [Dexilant] 60 mg PO DAILY 03/08/18 03/08/18 History duloxetine [Cymbalta] 30 mg PO BID 03/08/18 03/08/18 History furosemide [Lasix] 20 mg PO DAILY 03/08/18 03/08/18 History gabapentin 300 mg PO TID 03/08/18 03/08/18 History guaifenesin 600 mg PO Q12H 03/08/18 03/08/18 History meloxicam 7.5 mg PO DAILY 03/08/18 03/08/18 History metoprolol succinate [Toprol XL] 25 mg PO DAILY 03/08/18 03/08/18 History nitroglycerin 0.4 mg SUBLINGUAL Q5-15M PRN 03/08/18 03/08/18 History ondansetron [Zofran ODT] 4 mg PO TID PRN 03/08/18 03/08/18 History potassium chloride 10 meq PO DAILY 03/08/18 03/08/18 History rosuvastatin [Crestor] 20 mg PO DAILY 03/08/18 03/08/18 History trazodone 50 mg PO HS 03/08/18 03/08/18 History Exam Vital signs: Vital Signs 03/08/18 06:54 03/08/18 07:19 03/08/18 08:51 Temperature 98 F Pulse Rate 75 70 69 Respiratory Rate 16 24 24 Blood Pressure 133/66 128/63 128/67 Pulse Oximetry 96 97 96 Intake & Output 03/07/18 03/08/18 03/08/18 18:59 06:59 18:59 Weight 113.409 kg Narrative: GENERAL: This is a well-nourished, well-developed patient, in no apparent distress. Patient speaks in clear complete sentences. Patient is pleasant. Patient is obese. HEENT: Head is atraumatic and normocephalic. Neck is supple without lymphadenopathy and trachea is midline. No JVD or carotid bruits. CARDIOVASCULAR: Regular rate and rhythm without murmurs, gallops, or rubs. RESPIRATORY: Clear to auscultation. Breath sounds equal bilaterally. No wheezes , rales, or rhonchi. Chest wall is tender even with lightly palpating the area , worsening the discomfort that she has had. No use of accessory muscles. GASTROINTESTINAL: Abdomen is nontender, nondistended. Abdomen soft. No obvious pulsatile mass or bruit. No CVA tenderness. Strong femoral pulses bilaterally. Normal bowel sounds in all quadrants. MUSCULOSKELETAL: Patient is moving upper and lower extremities freely. No calf tenderness or edema, no Homans sign. Strong pulses in upper and lower extremities. NEUROLOGICAL: Patient is alert and oriented. Cranial nerves 2-12 are grossly intact. No focal deficits and speech is clear. SKIN: No rash and turgor is normal. Results 03/08/18 07:15 03/08/18 07:15 Cardiac Enzymes 03/08/18 03/08/18 Range/Units 07:15 07:15 AST 14 L (15-37) U/L Troponin I Less than 0.02 L (0.02-0.05) ng/mL B-Natriuretic Peptide 10 (0-100) pg/mL Coagulation 03/08/18 03/08/18 Range/Units 07:15 07:15 PT 9.9 (9.8-11.6) sec APTT 24.5 (24.3-30.1) sec B-Natriuretic Peptide 10 (0-100) pg/mL CBC 03/08/18 Range/Units 07:15 WBC 9.1 (4.0-11.0) th/mm3 RBC 4.24 (4.00-5.30) mil/mm3 Hgb 12.8 (11.6-15.3) gm/dL Hct 38.2 (35.0-46.0) % Plt Count 321 (150-450) th/mm3 Neut # (Auto) 5.4 (1.8-7.7) th/mm3 Lymph # (Auto) 2.4 (1.0-4.8) th/mm3 [place] # (Auto) 0.9 (0.0-0.9) th/mm3 Eos # (Auto) 0.4 (0.0-0.4) th/mm3 Baso # (Auto) 0.0 (0.0-0.2) th/mm3 Comprehensive Metabolic Panel 03/08/18 Range/Units 07:15 Sodium 143 (136-145) meq/L Potassium 3.8 (3.5-5.1) meq/L Chloride 106 (98-107) meq/L Carbon Dioxide 25.6 (21.0-32.0) meq/L BUN 24 H (7-18) mg/dL Creatinine 0.68 (0.50-1.00) mg/dL Calcium 9.0 (8.5-10.1) mg/dL AST 14 L (15-37) U/L ALT 26 (10-53) U/L Alkaline Phosphatase 85 (45-117) U/L Total Protein 7.1 (6.4-8.2) g/dL Albumin 3.4 (3.4-5.0) g/dL Intake and Output 03/07/18 03/08/18 03/08/18 22:59 06:59 14:59 Other: Weight 113.409 kg EKG interpretations - EKG EKG shows: sinus rhythm (Initial EKG is sinus rhythm without significant ST segment depressions or elevations. Nonspecific T wave changes.) Caprini VTE Risk Assessment Caprini VTE Risk Assessment: Moderate/High Risk (score >= 2) Caprini Risk Assessment Model: Point Value = 1 Point Value = 2 Point Value = 3 Point Value = 5 Age 41-60 Minor surgery BMI > 25 kg/m2 Swollen legs Varicose veins or History of unexplained or recurrent spontaneous Oral contraceptives or hormone replacement Sepsis (< 1 month) Serious lung disease, including pneumonia (< 1 month) Abnormal pulmonary function Acute myocardial infarction Congestive heart failure (< 1 month) History of inflammatory bowel disease Medical patient at bed rest Age 61-74 Arthroscopic surgery Major open surgery (> 45 min) Laparoscopic surgery (> 45 min) Malignancy Confined to bed (> 72 hours) Immobilizing plaster cast Central venous access Age >= 75 History of VTE Family history of VTE Factor V Leiden Prothrombin [id number] Lupus anticoagulant Anticardiolipin antibodies Elevated serum homocysteine Heparin-induced thrombocytopenia Other congenital or acquired thrombophilia Stroke (< 1 month) Elective arthroplasty Hip, pelvis, or leg fracture Acute spinal cord injury (< 1 month) Prophylaxis Regimen: Total Risk Factor Score Risk Level Prophylaxis Regimen 0-1 Low Early ambulation 2 Moderate Order ONE of the following: *Sequential Compression Device (SCD) *Heparin 5000 units SQ BID 3-4 Higher Order ONE of the following medications: *Heparin 5000 units SQ TID *Enoxaparin/Lovenox 40 mg SQ daily (WT < 150 kg, CrCl > 30 mL/min) *Enoxaparin/Lovenox 30 mg SQ daily (WT < 150 kg, CrCl > 10-29 mL/min) *Enoxaparin/Lovenox 30 mg SQ BID (WT < 150 kg, CrCl > 30 mL/min) AND/OR *Sequential Compression Device (SCD) 5 or more Highest Order ONE of the following medications: *Heparin 5000 units SQ TID (Preferred with Epidurals) *Enoxaparin/Lovenox 40 mg SQ daily (WT < 150 kg, CrCl > 30 mL/min) *Enoxaparin/Lovenox 30 mg SQ daily (WT < 150 kg, CrCl > 10-29 mL/min) *Enoxaparin/Lovenox 30 mg SQ BID (WT < 150 kg, CrCl > 30 mL/min) AND *Sequential Compression Device (SCD) Assessment and Plan - Assessment (1) Chest pain Code(s): R07.9 - Chest pain, unspecified Status: Acute (2) Hypertension Code(s): I10 - Essential (primary) hypertension Status: Acute (3) Hyperlipidemia Code(s): E78.5 - Hyperlipidemia, unspecified Status: Acute (4) Diabetes Code(s): E11.9 - Type 2 diabetes mellitus without complications Status: Acute (5) Depression Code(s): F32.9 - Major depressive disorder, single episode, unspecified Status : Acute (6) Obesity Code(s): E66.9 - Obesity, unspecified Status: Acute (7) Sleep apnea Code(s): G47.30 - Sleep apnea, unspecified Status: Acute (8) COPD (chronic obstructive pulmonary disease) Code(s): J44.9 - Chronic obstructive pulmonary disease, unspecified Status: Acute - Plan * Chest pain: Patient will continue to have serial cardiac enzymes and EKGs for ruling out purposes. She will be seen by Dr. Lau of cardiology in the chest pain center. Her chest wall is tender which she states is worsening the discomfort she has had. We will give a dose of Toradol. Patient does have multiple risk factors for CAD and subsequently will need stress testing. If she rules out, patient will have stress test. Patient will be discharged home tomorrow if her Lexiscan is nonischemic with instructions to follow-up with PCP. Return to ED for interval issues. * Diabetes: Patient will have sliding scale insulin coverage while in chest pain center. She states that she has been following a diabetic diet for control. She would need to further discuss this with her PCP. Patient has been encouraged to follow an 1800-calorie ADA diet. * Hypertension: Continue medication. * Hyperlipidemia: Continue medication. * COPD: Duo nebs as needed. Resume medication at discharge. * Obesity: Patient counseled on importance of diet, exercise, weight loss. * Sleep apnea: Patient will need to continue CPAP device at home. Patient is stable at this time. She is agreeable to this plan. (1) Chest pain Qualifiers: Chest pain type: unspecified Qualified Code(s): R07.9 - Chest pain, unspecified
[2018-03-08] MEDS ORDERED: Ketorolac Inj 30 MG/ML (IVP) Vial IV.PUSH ONE (11:45)
--- NOTE | 2018-03-08 12:07 | P.PNCA ---
Subjective Interval history: 63-year-old morbidly obese white lady was presented by the physician white spooler. The patient's documentation was reviewed along with radiographic and laboratory findings. She was then seen and examined personally. I am in agreement with the documentation as recorded. She has already ruled out for ACS using standard [employer] protocol and after discussion feel that further evaluation with a nuclear scan is necessary. Her current chest pain is clearly musculoskeletal and probably related to cervical spine. She has a history of osteoporosis rheumatoid arthritis fibromyalgia and recurring back pain with scoliosis. Evaluation with Lexiscan will be continued simply because of her significant risk factors of hypertension diabetes hyperlipidemia obesity sedentary lifestyle etc. Physical Exam Vital signs: Vital Signs 03/08/18 06:54 03/08/18 07:19 03/08/18 08:51 Temperature 98 F Pulse Rate 75 70 69 Respiratory Rate 16 24 24 Blood Pressure 133/66 128/63 128/67 Pulse Oximetry 96 97 96 Intake & Output 03/07/18 03/08/18 03/08/18 18:59 06:59 18:59 Weight 113.409 kg 126.552 kg Narrative: Extremely obese white lady resting in bed with ongoing complaints of left-sided chest pain Neck is difficult to evaluate due to her obesity but there is no apparent jugular venous distention and no masses Chest markedly diminished breath sounds again due to her obesity but no rales wheezes or rhonchi Very tender over the left upper chest left upper arm Cardiovascular reveals a regular rhythm with no gallop rub or murmur Assessment and Plan - Assessment (1) Chest pain Code(s): R07.9 - Chest pain, unspecified Status: Acute Plan: Patient is already ruled out for ACS. Her chest pain clearly is musculoskeletal but in view of her multiple risk factors further evaluation with a nuclear scan will be carried out prior to discharge. She will be discharged to further follow-up with her primary care physician. She already has a (2) Hypertension Code(s): I10 - Essential (primary) hypertension Status: Acute (3) Hyperlipidemia Code(s): E78.5 - Hyperlipidemia, unspecified Status: Acute (4) Diabetes Code(s): E11.9 - Type 2 diabetes mellitus without complications Status: Acute (5) Depression Code(s): F32.9 - Major depressive disorder, single episode, unspecified Status : Acute (6) Obesity Code(s): E66.9 - Obesity, unspecified Status: Acute (7) Sleep apnea Code(s): G47.30 - Sleep apnea, unspecified Status: Acute (8) COPD (chronic obstructive pulmonary disease) Code(s): J44.9 - Chronic obstructive pulmonary disease, unspecified Status: Acute - Plan * Chest pain: Patient will continue to have serial cardiac enzymes and EKGs for ruling out purposes. She will be seen by Dr. Lau of cardiology in the chest pain center. Her chest wall is tender which she states is worsening the discomfort she has had. We will give a dose of Toradol. Patient does have multiple risk factors for CAD and subsequently will need stress testing. If she rules out, patient will have stress test. Patient will be discharged home tomorrow if her Lexiscan is nonischemic with instructions to follow-up with PCP. Return to ED for interval issues. * Diabetes: Patient will have sliding scale insulin coverage while in chest pain center. She states that she has been following a diabetic diet for control. She would need to further discuss this with her PCP. Patient has been encouraged to follow an 1800-calorie ADA diet. * Hypertension: Continue medication. * Hyperlipidemia: Continue medication. * COPD: Duo nebs as needed. Resume medication at discharge. * Obesity: Patient counseled on importance of diet, exercise, weight loss. * Sleep apnea: Patient will need to continue CPAP device at home. Patient is stable at this time. She is agreeable to this plan. (1) Chest pain Qualifiers: Chest pain type: unspecified Qualified Code(s): R07.9 - Chest pain, unspecified
[2018-03-08 12:21] LABS: Creatine Kinase 68 U/L (26-192)
[2018-03-08] MEDS: Gabapentin 300 MG Capsule PO SCH ×2 (12:43→19:48)
[2018-03-08] MEDS: Insulin NovoLIN Regular Correctional Sugar Inj SQ SCH ×3 (13:48→22:05)
[2018-03-08 17:27] LABS: Creatine Kinase 62 U/L (26-192)
[2018-03-08] MEDS ORDERED: traZODone 50 MG Tablet PO SCH (21:00)
[2018-03-09] MEDS: Insulin NovoLIN Regular Correctional Sugar Inj SQ SCH ×2 (08:00→12:48)
[2018-03-09] MEDS: Gabapentin 300 MG Capsule PO SCH ×2 (08:47→13:08)
[2018-03-09] MEDS ORDERED: ARIPiprazole 10 MG Tablet PO SCH (09:00)
[2018-03-09] MEDS ORDERED: Furosemide 20 MG Tablet PO SCH (09:00)
[2018-03-09] MEDS ORDERED: Potassium Chloride 10 MEQ ER Capsule PO SCH (09:00)
[2018-03-09] MEDS ORDERED: Regadenoson Inj 0.4 MG/5 ML Syringe IV.PUSH ONE (11:29)
--- NOTE | 2018-03-09 14:48 | NM ---
EXAM DATE: 03/09/2018 2:45 PM EDT AGE/SEX: 63 years / Female INDICATIONS:Angina. . Chest pain. CLINICAL DATA: This is the patient's initial encounter. Patient reports that signs and symptoms have been present for 1 day and indicates a pain score of 0/10. MEDICAL/SURGICAL HISTORY: Chronic obstructive pulmonary disease. Congestive heart failure. Di abetes mellitus type II. HTN. Tubal ligation. Cholecystectomy. Appendectomy. COMPARISON: No prior exams available for comparison. DOSE: 11.0 mCi Tc 99m Myoview at rest 35.0 mCi [id number] at stress 0.4 mg Lexiscan STRESS SYMPTOMS: Dyspnea. EJECTION FRACTION: 53 % TECHNIQUE: The patient underwent pharmacologic stress with infusion of prescribed dose. Continuous ECG tracing was monitored during stress. Gated SPECT imaging was performed after stress and conventi onal SPECT imaging was performed at rest. The examination was performed on a SPECT/CT scanner, both attenuation and non-corrected datasets were reviewed. FINDINGS: Distribution: The maximum perfused segment at stress is in the lateral wall. Perfusion Study: No murmurs 1 perfusion defects. Matched defects anterior wall and apex. Gated Study: There are intact wall motion and wall thickening without hypokinetic or dyskinetic segm ents. The ejection fraction is calculated at 53%. RISK CATEGORY: Intermediate (1-3 % Annual Mortality Rate) CONCLUSION: 1. No reversible perfusion defects to suggest ischemia. 2. Ejection fraction 53%. Electronically signed by: Alphonse Hill MD 03/09/2018 2:47 PM EDT
--- NOTE | 2018-03-09 14:56 | ECG ---
Date Performed: 03/08/2018 Time Performed: 11:11:45 PTAGE: 63 years EKG: Sinus rhythm NON SPECIFIC ST-T CHANGES PREVIOUS TRACING : 05/14/2017 11.57 DOCTOR: Jairo Lau Interpretating Date/Time 03/09/2018 14:54:54
--- NOTE | 2018-03-09 14:56 | ECG ---
Date Performed: 03/08/2018 Time Performed: 14:11:42 PTAGE: 63 years EKG: Sinus rhythm NS ST-T CHANGES PREVIOUS TRACING : 03/08/2018 11.11 DOCTOR: Jairo Lau Interpretating Date/Time 03/09/2018 14:54:29
--- NOTE | 2018-03-09 14:56 | ECG ---
Date Performed: 03/08/2018 Time Performed: 07:00:33 PTAGE: 63 years EKG: Sinus rhythm NONSPECIFIC T-WAVE ABNORMALITY BORDERLINE ECG NO SIG CHANGE NO PREVIOUS TRACING DOCTOR: Jairo Lau Interpretating Date/Time 03/09/2018 14:55:15
--- NOTE | 2018-07-15 08:37 | TR ---
Date Performed: 03/09/2018 Time Performed: 11:37:56 DOCTOR: Chad Ferrer DRUG LIST: CLINICAL HISTORY: REASON FOR TEST: REASON FOR ENDING: OBSERVATION: CONCLUSION: COMMENTS: Lexiscan stress test was performed under standard four minute protocol. Radionuclide was injected one minute prior to ending the test. No electrocardiographic abormalities were present t o suggest ischemia. Nuclear imaging and interpretation are pending.
== END 2018-03-09 18:25 | disposition home or self-care (01) ==
LOC: NEDA 06:41 → NEPE 06:41 → NEPFCDU 06:41 → NEDA 15:00 → NEPFCDU 16:04
PROVIDERS: ADMIT Internal Medicine Interventional Cardiology; ATTEND Internal Medicine Interventional Cardiology